=== PATIENT | female | born 1985 | race Two or more races ===

== ENCOUNTER 2024-03-08 12:20 | Emergency (ER) | payer OTHER ==
[~2024-03-08] VITALS: Ht 165.1 cm; Wt 136.1 kg
[2024-03-08 12:26] VITALS: BP 143/93; O2SAT 100
[2024-03-08 13:35] LABS: HEMATOCRIT 39.4 % (36.0-45.00); HEMOGLOBIN 13.5 g/dL (12.0-15.00); MEAN CELL VOLUME 90.7 fL (80.00-100.00); MEAN CORPUSCULAR HEMOGLOBIN 31.2 pg (27.00-32.0); MEAN CORPUSCULAR HGB CONC 34.4 g/dl (32.0-36.0); PLATELET COUNT 331 K/uL (150-450); RED BLOOD COUNT 4.35 M/uL (4.00-6.00); RED CELL DISTRIBUTION WIDTH 14.4 % (11.5-14.5)
[2024-03-08 13:50] LABS: PH,URINE 7.5 (5.0-8.0); URINE APPEARANCE Clear; URINE BACTERIA 1170.4 uL (0.0-1933); URINE BILIRRUBIN Negative (NEGATIVE); URINE BLOOD Trace; URINE COLOR Yellow; URINE EPITHELIAL CELLS 6.9 uL (0.0-38.8); URINE GLUCOSE Negative (NEGATIVE); URINE KETONE Negative (NEGATIVE); URINE LEUKOCYTE Negative; URINE NITRATE Negative; URINE PROTEIN Negative (NEGATIVE); URINE RBC 6.5 uL (0.0-20.8); URINE UROBILINOGEN 0.2 E.U./dl; URINE WBC 6.3 uL (0.0-23.2)
[2024-03-08 13:55] LABS: CALCIUM 8.9 mg/dL (8.5-10.1); CREATININE SERUM 0.67 mg/dL (0.55-1.02); GFR 98.5; POTASSIUM 3.69 mEq/L (3.5-5.1)
== END 2024-03-08 18:01 | disposition left against medical advice (07) ==
LOC: ER 12:22
PROVIDERS: Emergency Medicine
DX: O26.899 Other specified pregnancy related conditions, unspecified trimester (principal); R10.30 Lower abdominal pain, unspecified

== ENCOUNTER 2024-03-09 11:35 | Emergency (ER) | payer OTHER ==
[~2024-03-09] VITALS: Ht 165.1 cm; Wt 136.1 kg
== END 2024-03-09 15:17 | disposition home or self-care (01) ==
LOC: ER 11:37
DX: O20.9 Hemorrhage in early pregnancy, unspecified (principal); Z3A.01 Less than 8 weeks gestation of pregnancy